=== PATIENT | female | born 1950 | race Hispanic/Latino ===

== ENCOUNTER 2019-04-07 09:53 | Day surgery (SDC) | payer MEDICARE ==
[2019-04-07 09:27] LABS: Absolute Lymphocytes (CBC) 1.4 K/uL (0.7-4.9); Basophils % 0.9 % (0-1.3); Hematocrit 36.2 % (36.0-45.0); Lymphocytes % 25.9 % (15.3-44.8); MPV 7.1 fL (7.6-11.3); RBC Red Blood Cell Count 4.26 M/uL (3.86-4.86)
[2019-04-07 09:35] LABS: BUN Blood Urea Nitrogen 9 mg/dL (7-18); Bicarbonate 27 mmol/L (21-32); Glucose Level 91 mg/dL (74-106); Potassium 3.8 mmol/L (3.5-5.1); Sodium Level 136 mmol/L (136-145)
[2019-04-07] MEDS ORDERED: Ringers Lactate 1,000 ML IV ONE (10:13)
--- NOTE | 2019-04-07 10:19 | EKG ---
Test Date: 2019-04-07 Test Time: 08:57:20 [employer]: TAMI MEASUREMENT RESULTS: Intervals: Rate: 87 WI: 122 QRSD: 72 QT: 324 QTc: 389 [place]: P: 78 WI: 122 QRS: 259 T: 46 INTERPRETIVE STATEMENTS: Normal sinus rhythm Biatrial enlargement vertical axis deviation Pulmonary disease pattern Abnormal ECG No previous ECG available for comparison Electronically Signed On 04-07-19 10:18:17 [employer] by Hector Noonan
--- NOTE | 2019-04-07 10:29 | RAD REPORT ---
EXAM DESCRIPTION: Arjun Dumont And Nora (2 Views)04/07/2019 10:03 am CLINICAL HISTORY: Preop for left hip wound debridement COMPARISON: None FINDINGS: PICC line has its tip in the superior vena cava The lungs appear clear of acute infiltrate. The heart is normal size Marked compression fracture involves a mid to lower thoracic vertebral body. The age is indeterminate but I suspect it is chronic IMPRESSION: No acute abnormalities displayed
[2019-04-07] MEDS ORDERED: propofoL 200 MG/20 ML VIAL IV ONE (10:55)
[2019-04-07] MEDS ORDERED: FENTANYL CITR 100 MCG/2 ML ONE (10:56)
[2019-04-07] MEDS ORDERED: MIDAZOLAM HCL 2 MG/2 ML INJ ONE (10:56)
[2019-04-07] MEDS ORDERED: LIDOCAINE 2% MPF 5 ML VIAL ONE (10:56)
[2019-04-07] MEDS ORDERED: EPHEDRINE SULF 50 MG/ML VIAL ONE (11:09)
--- NOTE | 2019-04-07 11:59 | P.BOP ---
Preoperative diagnosis: left ischial decubitus ulcer with necrotic tissue, osteomyelitis Postoperative diagnosis: same Primary procedure: 1. Excisional debridement left ischial decubitus ulcer with necrotic tissue Secondary procedure: 7 x 5 x 0.5 cm Other procedure(s): 2. Amniophill application Estimated blood loss: <10cc Specimen: devitalized tissue Anesthesia: General Complications: None Transferred to: Recovery Room Condition: Good
[2019-04-07 12:36] VITALS: TEMP 97.5
[2019-04-07 14:24] VITALS: BP 131/64; O2SAT 97
--- NOTE | 2019-04-07 23:04 | OP ---
Date of Procedure: 04/07/2019 Surgeon: Denis Sanchez MD Preoperative Diagnosis: Left ischial decubitus ulcer with necrotic tissue osteomyelitis. Postoperative Diagnosis: Left ischial decubitus ulcer with necrotic tissue osteomyelitis. Procedure: Excisional debridement of left ischial decubitus ulcer, 7 x 5 x 0.5 cm, with removal of n ecrotic tissue. Application of AmnioFill dressings. Anesthesia: General plus local. Indications: This is the case of a 68-year-old patient, who comes to us with osteomyelitis of the le ft ischial area. Patient has been seen by ID, started on IV antibiotics. She has necrotic tissue on the ulcer. She was taken today for removal of necrotic tissue and application of AmnioFill. The be nefits, alternatives, and risks were explained, which include but are not limited to, infection, blee ding, damage to adjacent structures, anesthesia complication, nonhealing wound, [place], and even . She also understands this may not relieve any of her symptoms. She might need more than one surgical intervention. She understood, signed a consent. The area of concern was marked by me on the patien t in the holding room. Description Of Procedure: Patient was brought to the operating room, placed in supine position. Ane sthesia was done without complication. Patient was placed in lateral decubitus position. Left hip a klaudia and ischial area were prepped and draped in a sterile fashion. Patient has a chronic wound. She is paraplegic long time with a necrotic ulcer in that area, and she has been treated already for her osteomyelitis. Now, we are trying to heal the wound. She has many products used in that area and t he area has not healed, so we are going to try the AmnioFill to help generate that area. We get her to debridement to make sure we have a good viable tissue. She understood that plan. We debrided the necrotic tissue present after injecting local anesthetic and then when we removed all that area, we noticed the cavity is about 7 x 5 x 0.5 cm since we have to go through a tunnel the patient has in th at wound. I cannot feel the bone at this time. So, once we debrided, we obtained hemostasis, irriga chevy the area, applied the AmnioFill, and went to use wet-to-dry dressing on top. Patient tolerated t he procedure well. Patient was sent to Recovery in stable condition. EDMUNDO/MODKimberly Voice ID: [id number] Report ID: [id number]
--- NOTE | 2019-04-07 23:04 | DS ---
Date of Discharge: 04/07/2019 Diagnosis: Left ischial decubitus ulcer with necrotic tissue, osteomyelitis. Procedure: Excisional debridement of ischial decubitus ulcer with AmnioFill application. Disposition: Home. Activity: As tolerated. No heavy lifting. Followup: Follow up in my office in 1 week. Call for appointment at [phone]. Instructions: Keep the area dry until Friday, then may remove outer dressings and shower and then apply wound VAC. Follow up with the wound healing center in 1 week. EDMUNDO/ADA Voice ID: [id number] Report ID: [id number]
== END 2019-04-07 14:10 | disposition home or self-care (01) ==
LOC: OR 09:53
PROVIDERS: ATTEND Surgery
PROC: 0HB8XZZ Excision of Buttock Skin, External Approach (ICD-10-PCS; principal; 2019-04-07 11:15)
DX: I96 Gangrene, not elsewhere classified (principal); L89.324 Pressure ulcer of left buttock, stage 4; M86.9 Osteomyelitis, unspecified; G82.20 Paraplegia, unspecified; E03.9 Hypothyroidism, unspecified; I10 Essential (primary) hypertension; M81.0 Age-related osteoporosis without current pathological fracture; K59.09 Other constipation; Z88.2 Allergy status to sulfonamides; Z88.3 Allergy status to other anti-infective agents; Z88.8 Allergy status to other drugs, medicaments and biological substances
CPT/HCPCS: 97597; 97598; 93005; 85025; 80048; 36415; 88304; 71046; J2704; J2250; J3010; J7120; 88305

== ENCOUNTER 2020-01-04 09:26 | Emergency (ER) | payer MEDICARE ==
--- NOTE | 2020-01-04 10:54 | RAD REPORT ---
EXAM DESCRIPTION: US - Extremity Venous Uni Ltd - 01/04/2020 10:43 am CLINICAL HISTORY: SWELLING, pain in the left leg COMPARISON: None. TECHNIQUE: Real-time sonographic evaluation of the left lower extremity deep venous system was perfo rmed. FINDINGS: Normal compressibility, flow augmentation, phasic flow and spontaneous flow are identified in the left lower extremity common femoral, superficial femoral, popliteal and posterior tibial vein s. No intraluminal filling defects seen. IMPRESSION: No DVT in the left lower extremity.
[2020-01-04 12:11] LABS: BUN Blood Urea Nitrogen 7 mg/dL (7-18); Bicarbonate 27 mmol/L (21-32); Glucose Level 102 mg/dL (74-106); Sodium Level 132 mmol/L (136-145)
[2020-01-04 12:12] LABS: Absolute Lymphocytes (CBC) 1.1 K/uL (0.7-4.9); Basophils % 0.5 % (0-1.3); Hematocrit 31.5 % (36.0-45.0); Lymphocytes % 9.6 % (15.3-44.8); MPV 7.4 fL (7.6-11.3); RBC Red Blood Cell Count 3.98 M/uL (3.86-4.86)
[2020-01-04 13:02] LABS: Urine Bacteria <20 /HPF (<20); Urine Culture Reflex Order REFLEXED; Urine RBC NONE SEEN /HPF (NONE SEEN)
[2020-01-04 13:02] LABS: Blood Morphology Comment NOT SEEN (NOT SEEN); Platelet Estimate INCR
[2020-01-04 13:03] LABS: Urine Amorphous Sediment 1+ /HPF (NONE SEEN)
--- NOTE | 2020-01-04 13:11 | EDPHYS ---
Physician Documentation [facility] Name: Soo Bonner Age: 69 yrs Sex: Female : 1950 Arrival Date: 01/04/2020 Time: 09:29 Bed 19 Private MD: Alma Delia Pierce ED Physician oNe King HPI: 01/03 14:05 This 69 yrs old Female presents to ER via Wheelchair with complaints of Blood kb Pressure Problem, Urinary Problem. 14:05 Pt reports she was at wound care and they said her BP was low so Dr Sanchez sent her kb here. States she is being treated for a UTI and cellulitis. Dr Sanchez called and wanted pt to rule out sepsis. Onset: The symptoms/episode began/occurred just prior to arrival. The patient has not experienced similar symptoms in the past. The patient has not recently seen a physician. Historical: - Allergies: 09:51 Levaquin; ss 09:51 Sulfa (Sulfonamide Antibiotics); ss 09:51 Zofran; ss - PMHx: 09:52 Hypertension; pressure ulcers; ss - Immunization history:: Adult Immunizations up to date. - Social history:: Smoking status: Patient denies any tobacco usage or history of. ROS: 13:59 Constitutional: Negative for fever, chills, and weight loss, Cardiovascular: Negative kb for chest pain, palpitations, and edema, Respiratory: Negative for shortness of breath, cough, wheezing, and pleuritic chest pain, Abdomen/GI: Negative for abdominal pain, nausea, vomiting, diarrhea, and constipation, MS/Extremity: Negative for injury and deformity, Neuro: Negative for headache, weakness, numbness, tingling, and seizure. 13:59 Skin: Positive for erythema, swelling. Exam: 14:02 Constitutional: This is a well developed, well nourished patient who is awake, alert, kb and in no acute distress. Head/Face: Normocephalic, atraumatic. Chest/axilla: Normal chest wall appearance and motion. Nontender with no deformity. No lesions are appreciated. Cardiovascular: Regular rate and rhythm with a normal S1 and S2. No gallops, murmurs, or rubs. Normal PMI, no JVD. No pulse deficits. Respiratory: Lungs have equal breath sounds bilaterally, clear to auscultation and percussion. No rales, rhonchi or wheezes noted. No increased work of breathing, no retractions or nasal flaring. Abdomen/GI: Soft, non-tender, with normal bowel sounds. No distension or tympany. No guarding or rebound. No evidence of tenderness throughout. MS/ Extremity: Pulses equal, no cyanosis. Neurovascular intact. Full, normal range of motion. Neuro: Awake and alert, GCS 15, oriented to person, place, time, and situation. Cranial nerves II-XII grossly intact. Motor strength 5/5 in all extremities. Sensory grossly intact. Cerebellar exam normal. Normal gait. 14:02 Skin: cellulitis, that is mild, on the left leg, "improving", open wound to left buttock that is packed and dressed. No signs of infection noted. Pt reports the wound has been there for 2 years and is being cared for by Dr Sanchez. Vital Signs: 09:49 BP 137 / 82; Pulse 100; Resp 16; Temp 97.6(TE); Pulse Ox 98% on R/A; Weight 45.36 kg; ss Height 5 ft. 2 in. (157.48 cm); Pain 0/10; 11:18 BP 139 / 66; Pulse 70; Resp 17; Pulse Ox 100% on R/A; tw2 12:15 BP 144 / 69; Pulse 61; Resp 17; Pulse Ox 95% on R/A; tw2 13:03 BP 126 / 62; Pulse 67; Resp 17; Pulse Ox 100% on R/A; tw2 13:44 BP 130 / 71; Pulse 63; Resp 17; Pulse Ox 97% on R/A; em 09:49 Body Mass Index 18.29 (45.36 kg, 157.48 cm) ss MDM: 10:05 Patient medically screened. kb 10:16 ED course: [facility] Pharmacy contacted for names of prescribed antibiotic. Macrobid kb prescribed on 12/28, keflex prescribed on 12/30.. 13:09 Data reviewed: vital signs, nurses notes. Data interpreted: Pulse oximetry: on room air kb is 100 %. Interpretation: normal. Counseling: I had a detailed discussion with the patient and/or guardian regarding: the historical points, exam findings, and any diagnostic results supporting the discharge/admit diagnosis, lab results, radiology results, the need for outpatient follow up, a family practitioner, to return to the emergency department if symptoms worsen or persist or if there are any questions or concerns that arise at home. Physician consultation: Denis Sanchez MD was contacted at 13:10, regarding consult, patient's condition. 01/03 09:59 Order name: Urine Microscopic Only 01/03 10:00 Order name: Urine Microscopic Only; Complete Time: 13:06 [facility] 01/03 10:15 Order name: CBC with Diff; Complete Time: 13:06 kb 01/03 10:15 Order name: Basic Metabolic Panel; Complete Time: 12:22 kb 01/03 10:15 Order name: Lactate; Complete Time: 12:22 kb 01/03 10:15 Order name: Procalcitonin; Complete Time: 12:32 kb 01/03 09:59 Order name: Urine Dipstick-Ancillary (obtain specimen); Complete Time: 12:30 kb 01/03 10:14 Order name: US Extremity Venous Unilateral Ltd; Complete Time: 10:56 kb 01/03 10:15 Order name: IV Start; Complete Time: 11:43 kb 01/03 10:15 Order name: Blood Culture Adult (2) 01/03 12:20 Order name: Straight Cath - Urine; Complete Time: 12:30 tw2 01/03 13:02 Order name: Manual Differential; Complete Time: 13:06 [facility] 01/03 13:06 Order name: Urine Culture [facility] 01/03 13:31 Order name: Urine Dipstick--Ancillary (enter results); Complete Time: 14:07 bd Administered Medications: No medications were administered Disposition: 01/04 08:32 Co-signature as Attending Physician, Noe King MD I agree with the assessment and kdr plan of care. Disposition: 01/04/20 13:10 Discharged to Home. Impression: Urinary tract infection, site not specified, Cellulitis of left lower limb, Unspecified open wound of left buttock. - Condition is Stable. - Discharge Instructions: Urinary Tract Infection, Adult, [id number], Cellulitis, Adult, [id number]. - Medication Reconciliation Form, Thank You Letter, Antibiotic Education, Prescription Opioid Use form. - Follow up: Emergency Department; When: As needed; Reason: Worsening of condition. Follow up: Private Physician; When: 2 - 3 days; Reason: Recheck today's complaints, Continuance of care, Re-evaluation by your physician. - Notes: Continue prescribed antibiotics and follow up with PCP. Continue wound care with DR Sanchez as planned Signatures: Dispatcher [employer] EDPaola Johnson, JANIS OKEEFE-Noe Pascal MD MD [facility] Marly Perrin RN RN ss Maria E Fuller RN RN tw2 Corrections: (The following items were deleted from the chart) 01/03 13:46 13:10 01/04/2020 13:10 Discharged to Home. Impression: Urinary tract infection, site tw2 not specified; Cellulitis of left lower limb; Unspecified open wound of left buttock. Condition is Stable. Forms are Medication Reconciliation Form, Thank You Letter, Antibiotic Education, Prescription Opioid Use. Follow up: Emergency Department; When: As needed; Reason: Worsening of condition. Follow up: Private Physician; When: 2 - 3 days; Reason: Recheck today's complaints, Continuance of care, Re-evaluation by your physician. kb
--- NOTE | 2020-01-04 13:11 | ER ---
Nurse's Notes [facility] Name: Soo Bonner Age: 69 yrs Sex: Female : 1950 Arrival Date: 01/04/2020 Time: 09:29 Bed 19 Private MD: Alma Delia Pierce Diagnosis: Urinary tract infection, site not specified;Cellulitis of left lower limb;Unspecified open wound of left buttock Presentation: 01/03 09:49 Chief complaint: Patient states: "Dr. Sanchez sent me from wound care. I have a ss bladder infection. I'm on antibiotics. My left leg is red and swollen. It's gone down, but it's been going on for four days, it's getting better, but my blood pressure was low.". Coronavirus screen: Client denies travel out of the [place] in the last 14 days. Ebola Screen: Patient denies exposure to infectious person. Patient denies travel to an Ebola-affected area in the 21 days before illness onset. Initial Sepsis Screen: Does the patient meet any 2 criteria? No. Patient's initial sepsis screen is negative. Does the patient have a suspected source of infection? Yes: Dysuria/Frequency/Urgency/UTI. Risk Assessment: Do you want to hurt yourself or someone else? Patient reports no desire to harm self or others. Onset of symptoms is unknown. 09:49 Method Of Arrival: Wheelchair ss 09:49 Acuity: SANDRA 3 ss Historical: - Allergies: 09:51 Levaquin; ss 09:51 Sulfa (Sulfonamide Antibiotics); ss 09:51 Zofran; ss - PMHx: 09:52 Hypertension; pressure ulcers; ss - Immunization history:: Adult Immunizations up to date. - Social history:: Smoking status: Patient denies any tobacco usage or history of. Screenin:25 Abuse screen: Denies threats or abuse. Nutritional screening: No deficits noted. tw2 Tuberculosis screening: No symptoms or risk factors identified. Fall Risk Secondary diagnosis (15 points) impaired mobility. Assessment: 10:04 General: Appears in no apparent distress. slender, well groomed, Behavior is calm, tw2 cooperative, appropriate for age. Pain: Denies pain. Neuro: Level of Consciousness is awake, alert, obeys commands, Oriented to person, place, time, situation. Cardiovascular: Heart tones S1 S2 Patient's skin is warm and dry. Respiratory: Airway is patent Respiratory effort is even, unlabored, Respiratory pattern is regular, symmetrical, Breath sounds are clear bilaterally. GI: No signs and/or symptoms were reported involving the gastrointestinal system. Abdomen is flat, Bowel sounds present X 4 quads. : Reports "on antibiotics for urine infection". EENT: No signs and/or symptoms were reported regarding the EENT system. Derm: No signs and/or symptoms reported regarding the dermatologic system. Skin is intact, is healthy with good turgor, Skin is dry. Musculoskeletal: Range of motion: intact in all extremities. 11:18 Reassessment: Patient appears in no apparent distress at this time. No changes from tw2 previously documented assessment. Patient and/or family updated on plan of care and expected duration. Pain level reassessed. Patient is alert, oriented x 3, equal unlabored respirations, skin warm/dry/pink. 12:15 Reassessment: Patient appears in no apparent distress at this time. No changes from tw2 previously documented assessment. Patient and/or family updated on plan of care and expected duration. Pain level reassessed. Patient is alert, oriented x 3, equal unlabored respirations, skin warm/dry/pink. 13:03 Reassessment: Patient appears in no apparent distress at this time. No changes from tw2 previously documented assessment. Patient and/or family updated on plan of care and expected duration. Pain level reassessed. Patient is alert, oriented x 3, equal unlabored respirations, skin warm/dry/pink. 13:44 Reassessment: Patient appears in no apparent distress at this time. No changes from em previously documented assessment. Patient and/or family updated on plan of care and expected duration. Pain level reassessed. Patient is alert, oriented x 3, equal unlabored respirations, skin warm/dry/pink. Vital Signs: 09:49 BP 137 / 82; Pulse 100; Resp 16; Temp 97.6(TE); Pulse Ox 98% on R/A; Weight 45.36 kg; ss Height 5 ft. 2 in. (157.48 cm); Pain 0/10; 11:18 BP 139 / 66; Pulse 70; Resp 17; Pulse Ox 100% on R/A; tw2 12:15 BP 144 / 69; Pulse 61; Resp 17; Pulse Ox 95% on R/A; tw2 13:03 BP 126 / 62; Pulse 67; Resp 17; Pulse Ox 100% on R/A; tw2 13:44 BP 130 / 71; Pulse 63; Resp 17; Pulse Ox 97% on R/A; em 09:49 Body Mass Index 18.29 (45.36 kg, 157.48 cm) ED Course: 09:29 Patient arrived in ED. mr 09:29 Alma Delia Pierce is Private Physician. mr 09:51 Triage completed. ss 09:52 Arm band placed on right wrist. ss 09:59 Paola Levy FNP-C is PHCP. kb 09:59 Noe King MD is Attending Physician. kb 10:04 Bed in low position. Call light in reach. Adult w/ patient. Pulse ox on. NIBP on. Warm tw2 blanket given. 10:08 Maria E Fuller RN is Primary Nurse. tw2 10:34 US Extremity Venous Unilateral Ltd In Process Unspecified. EDMS 11:12 First set of blood cultures drawn Eron Cullen at [facility]- sent to lab. tw2 11:12 Missed attempt(s): 22 gauge in right forearm. Alyse,Tech. Bleeding controlled, band tw2 aid applied, catheter tip intact. 11:25 Second set of blood cultures drawn by wv. mh5 11:30 Blood Culture Adult (2) Sent. mh5 11:30 Lactate Sent. mh5 11:55 Missed attempt(s):. mh5 12:29 Straight cath inserted, using sterile technique, 16 Fr. Specimen obtained. Alyse tw2 Tech served as exterminator termite Returned approx 300 ml. Patient tolerated well. 12:30 Urine Microscopic Only Sent. tw2 13:45 No provider procedures requiring assistance completed. IV discontinued, intact, tw2 bleeding controlled, No redness/swelling at site. Pressure dressing applied. Administered Medications: No medications were administered Outcome: 13:10 Discharge ordered by . kb 13:45 Discharged to home via wheelchair, with family. tw2 13:45 Condition: stable 13:45 Discharge instructions given to patient, family, Instructed on discharge instructions, follow up and referral plans. Demonstrated understanding of instructions, follow-up care. 13:46 Patient left the ED. tw2 Signatures: Dispatcher [employer] EDMS Paola Levy FNP-C FNP-CkJasmyne Solomon mr You, Jose Rafael, RN RN em Marly Perrin, RN RN ss Maria E Fuller RN RN [facility]
[2020-01-04 13:39] LABS: Urine Blood TRACE (NEG); Urine Glucose NEGATIVE (NEG); Urine Protein 1+ (NEG); Urine Specific Gravity 1.015 (1.005-1.030)
[2020-01-04 20:27] VITALS: TEMP 97.6
[2020-01-04 20:32] VITALS: BP 130/71; O2SAT 97
== END 2020-01-04 13:46 | disposition home or self-care (01) ==
LOC: ER 09:26
DX: L03.116 Cellulitis of left lower limb (principal); N39.0 Urinary tract infection, site not specified; S31.829A Unspecified open wound of left buttock, initial encounter; I10 Essential (primary) hypertension; Z88.1 Allergy status to other antibiotic agents; Z88.2 Allergy status to sulfonamides; Z88.8 Allergy status to other drugs, medicaments and biological substances
CPT/HCPCS: 36415; 51702; 80048; 81003; 81015; 83605; 84145; 85025; 87040; 87086; 87088; 93971; 99284